=== PATIENT | female | born 1980 | race Two or more races ===

== ENCOUNTER 2017-06-22 15:08 | Outpatient (CLI) | payer BC ==
[~2017-06-22 15:08] MED LIST: ALPR0.25 PO; PANT40TA2 PO; SERT50TA12 PO
[2017-06-26 02:14] LABS: *NEISSERIA GONORRHOEAE NAA Negative (Negative); CHLAMYDIA TRACHOMATIS NAA Negative (Negative)
== END 2017-06-22 23:59 | disposition home or self-care (01) ==
LOC: LAB 15:08
PROVIDERS: ATTEND Family Medicine
DX: Z12.4 Encounter for screening for malignant neoplasm of cervix (principal); Z11.3 Encounter for screening for infections with a predominantly sexual mode of transmission
CPT/HCPCS: 87491; 87591; 88142

== ENCOUNTER 2018-06-24 07:25 | Outpatient (CLI) | payer BC ==
[2018-06-24 08:27] LABS: BASOPHILS % (AUTO) 0.4 % (0.0-2.0); EOSINOPHILS % (AUTO) 1.1 % (0.0-6.0); HEMATOCRIT 40 % (33-45); LYMPHOCYTES # (AUTO) 1.5 /CMM (0.8-4.8); LYMPHOCYTES % (AUTO) 35.1 % (20.0-44.0); MEAN CORPUSCULAR HEMOGLOBIN 29 PG (26.0-33.0); MEAN CORPUSCULAR HGB CONC 33 g/dl (31.0-36.0); MEAN CORPUSCULAR VOLUME 90 fL (82-100); MONOCYTES # (AUTO) 0.4 /CMM (0.1-1.30); MONOCYTES % (AUTO) 10.4 % (2.0-12.0); NEUTROPHILS # (AUTO) 2.2 /CMM (1.8-8.9); PLATELET COUNT (AUTO) 306 /CMM (150-450); RDW COEFFICIENT OF VARIATION 13.6 (11.5-15.0); RED BLOOD CELL COUNT(AUTO) 4.45 MIL/uL (4.0-5.2); WHITE BLOOD COUNT (AUTO) 4.2 K/uL (4.3-11.0)
[2018-06-24 08:31] LABS: ALBUMIN 3.7 g/dL (3.4-5.0); BILIRUBIN,TOTAL 0.5 mg/dL (0.2-1.0); CALCIUM, SERUM 8.1 mg/dL (8.5-10.1); CREATININE 0.7 mg/dL (0.6-1.3); POTASSIUM 3.9 mmol/L (3.5-5.1)
[2018-06-24 08:38] LABS: FREE T4 (FREE THYROXINE) 0.75 ng/dL (0.76-1.46); THYROID STIMULATING HORMONE 1.483 uIU/mL (0.358-3.74)
[2018-06-24 08:39] LABS: APPEARANCE,URINE CLEAR (CLEAR); BILIRUBIN,URINE NEGATIVE (NEGATIVE); BLOOD, URINE NEGATIVE Ery/uL (NEGATIVE); COLOR,URINE YELLOW (YELLOW); KETONES,URINE NEGATIVE (NEGATIVE); LEUKOCYTE ESTERASE ,URINE NEGATIVE (NEGATIVE); NITRITE, URINE NEGATIVE (NEGATIVE); PH,URINE 8.5 (5.0-8.0); PROTEIN,URINE NEGATIVE (NEGATIVE); UGLUCOSE NEGATIVE (NEGATIVE); UROBILINOGEN,URINE 0.2 EU/dL (0.2)
== END 2018-06-24 23:59 | disposition home or self-care (01) ==
LOC: LAB 07:25
PROVIDERS: ATTEND Family Medicine
DX: Z00.01 Encounter for general adult medical examination with abnormal findings (principal); N39.0 Urinary tract infection, site not specified
CPT/HCPCS: 36415; 80053-TC; 80061-TC; 81000-TC; 82306; 84439-TC; 84443-TC; 85025-TC

== ENCOUNTER 2019-03-23 07:22 | Emergency (ER) | payer BC ==
[~2019-03-23] VITALS: Ht 167.6 cm; Wt 78.5 kg
--- NOTE | 2019-03-23 07:46 | NUR ---
PATIENT C/O COUGH WITH CONGESTION x 3 DAYS, -FEVER, PATIENT A/OX4, NO DISTRESS NOTED, BREATHING EVEN AND UNLABORED, PLACED ON THE MONITOR.
[2019-03-23] MEDS ORDERED: predniSONE 20 MG TABLET ONE (07:58)
[2019-03-23] MEDS ORDERED: IPRATROPIUM NEB FS 0.5 MG/2.5 ML AMPUL.NEB ONE (08:00)
[2019-03-23] MEDS ORDERED: ALBUTEROL FS 2.5 MG/3 ML VIAL.NEB ONE (08:00)
[2019-03-23] MEDS ORDERED: IPRATROPIUM NEB FS 0.5 MG/2.5 ML AMPUL.NEB NEB ONE (08:00)
[2019-03-23] MEDS ORDERED: predniSONE 20 MG TABLET PO ONE (08:00)
[2019-03-23] MEDS ORDERED: ALBUTEROL FS 2.5 MG/3 ML VIAL.NEB NEB ONE (08:00)
--- NOTE | 2019-03-23 09:37 | NUR ---
Rx provided, Patient discharged to home in stable condition. Written and verbal after care instructions given. Patient verbalizes understanding of instruction.
[2019-03-23 09:39] VITALS: BP 129/69
== END 2019-03-23 09:40 | disposition home or self-care (01) ==
LOC: ER 07:24
DX: J06.9 Acute upper respiratory infection, unspecified (principal); J45.909 Unspecified asthma, uncomplicated
CPT/HCPCS: 71045; 94640; 99283; J7512

== ENCOUNTER 2020-08-25 08:54 | Outpatient (CLI) | payer BC ==
[2020-08-25 10:33] LABS: BASOPHILS % (AUTO) 0.5 % (0.0-2.0); EOSINOPHILS % (AUTO) 0.7 % (0.0-6.0); HEMATOCRIT 40 % (33-45); HEMOGLOBIN 13.6 g/dL (11.5-14.8); LYMPHOCYTES # (AUTO) 1.4 /CMM (0.8-4.8); LYMPHOCYTES % (AUTO) 35.6 % (20.0-44.0); MEAN CORPUSCULAR HGB CONC 34 g/dl (31.0-36.0); MEAN CORPUSCULAR VOLUME 89 fL (82-100); MONOCYTES # (AUTO) 0.3 /CMM (0.1-1.30); MONOCYTES % (AUTO) 7.2 % (2.0-12.0); NEUTROPHILS # (AUTO) 2.2 /CMM (1.8-8.9); PLATELET COUNT (AUTO) 335 /CMM (150-450); RED BLOOD CELL COUNT(AUTO) 4.56 MIL/uL (4.0-5.2); WHITE BLOOD COUNT (AUTO) 3.9 K/uL (4.3-11.0)
[2020-08-25 10:54] LABS: ALBUMIN 3.8 g/dL (3.4-5.0); BILIRUBIN,TOTAL 0.5 mg/dL (0.2-1.0); CALCIUM, SERUM 8.9 mg/dL (8.5-10.1); CREATININE 0.7 mg/dL (0.6-1.3); POTASSIUM 3.7 mmol/L (3.5-5.1); TOTAL PROTEIN, SERUM 7.4 g/dL (6.4-8.2)
[2020-08-25 10:59] LABS: THYROID STIMULATING HORMONE 0.948 uIU/mL (0.358-3.74)
[2020-08-25 11:01] LABS: APPEARANCE,URINE CLOUDY (CLEAR); BILIRUBIN,URINE NEGATIVE (NEGATIVE); BLOOD, URINE NEGATIVE Ery/uL (NEGATIVE); COLOR,URINE YELLOW (YELLOW); KETONES,URINE NEGATIVE (NEGATIVE); LEUKOCYTE ESTERASE ,URINE NEGATIVE (NEGATIVE); NITRITE, URINE NEGATIVE (NEGATIVE); PH,URINE 8.5 (5.0-8.0); PROTEIN,URINE NEGATIVE (NEGATIVE); UGLUCOSE NEGATIVE (NEGATIVE); UROBILINOGEN,URINE 0.2 EU/dL (0.2)
== END 2020-08-25 23:59 | disposition home or self-care (01) ==
LOC: LAB 08:54
PROVIDERS: ATTEND Family Medicine
DX: Z00.01 Encounter for general adult medical examination with abnormal findings (principal); Z79.899 Other long term (current) drug therapy
CPT/HCPCS: 36415; 80053-TC; 80061-TC; 81000-TC; 82306; 84439-TC; 84443-TC; 85025-TC

== ENCOUNTER 2021-12-15 10:02 | Outpatient (CLI) | payer BC | END 2021-12-15 23:59 | disposition home or self-care (01) | LOC: MRI 10:02 | PROVIDERS: ATTEND Family Medicine | DX: M25.462 Effusion, left knee (principal); M94.262 Chondromalacia, left knee; M19.011 Primary osteoarthritis, right shoulder; M75.51 Bursitis of right shoulder; M47.812 Spondylosis without myelopathy or radiculopathy, cervical region; M50.221 Other cervical disc displacement at C4-C5 level; M48.02 Spinal stenosis, cervical region; M25.78 Osteophyte, vertebrae | CPT/HCPCS: 72141-TC; 73221-TC; 73721-TC ==

== ENCOUNTER 2022-10-19 14:15 | Outpatient (CLI) | payer BC ==
[2022-10-20] MEDS ORDERED: IV NS 0.9% 250 ML IV ONE (11:10)
[2022-10-20] MEDS ORDERED: IOHEXOL-300 100 ML VIAL IV ONE (11:10)
== END 2022-10-19 23:59 | disposition home or self-care (01) ==
LOC: LAB 14:15
PROVIDERS: ATTEND Family Medicine
DX: Z75.3 Unavailability and inaccessibility of health-care facilities (principal)
CPT/HCPCS: J7050; Q9967

== ENCOUNTER 2022-10-20 10:45 | Outpatient (CLI) | payer BC | END 2022-10-20 23:59 | disposition home or self-care (01) | LOC: CT 10:45 | PROVIDERS: ATTEND Family Medicine | DX: D25.9 Leiomyoma of uterus, unspecified (principal); R10.9 Unspecified abdominal pain | CPT/HCPCS: 74178; J7050; Q9967 ==

== ENCOUNTER 2024-01-18 11:13 | Outpatient (CLI) | payer BC | END 2024-01-18 23:59 | disposition home or self-care (01) | LOC: MRI 11:13 | PROVIDERS: ATTEND Family Medicine | DX: M17.12 Unilateral primary osteoarthritis, left knee (principal); M22.42 Chondromalacia patellae, left knee; M25.462 Effusion, left knee; M25.562 Pain in left knee | CPT/HCPCS: 73721-TC ==

== ENCOUNTER 2024-03-25 06:55 | Inpatient (IN) | payer BC ==
[~2024-03-25] VITALS: Ht 167.6 cm; Wt 87.5 kg
[2024-03-25] MEDS ORDERED: BUPIVACAINE 0.5 % PF 150 MG/30 ML VIAL ONE (07:50)
[2024-03-25 08:24] LABS: BASOPHILS % (AUTO) 0.5 % (0.0-2.0); EOSINOPHILS # (AUTO) 0.1 K/uL (0.0-0.7); EOSINOPHILS % (AUTO) 1.9 % (0.0-6.0); HEMATOCRIT 39 % (33-45); HEMOGLOBIN 13.2 g/dL (11.5-14.8); LYMPHOCYTES # (AUTO) 1.4 K/uL (0.8-4.8); MEAN CORPUSCULAR HEMOGLOBIN 30 PG (26.0-33.0); MEAN CORPUSCULAR HGB CONC 34 g/dl (31.0-36.0); MEAN CORPUSCULAR VOLUME 87 fL (82-100); MONOCYTES # (AUTO) 0.3 K/uL (0.1-1.30); MONOCYTES % (AUTO) 8.9 % (2.0-12.0); NEUTROPHILS # (AUTO) 1.8 K/uL (1.8-8.9); NEUTROPHILS % (AUTO) 49.7 % (43.0-81.0); PLATELET COUNT (AUTO) 334 K/uL (150-450); RED BLOOD CELL COUNT(AUTO) 4.46 MIL/uL (4.0-5.2); RED CELL DISTRIBUTION WIDTH 13.7 % (11.5-15.0); WHITE BLOOD COUNT (AUTO) 3.7 K/uL (4.3-11.0)
[2024-03-25 08:26] LABS: PREGNANCY TEST URINE QUAL NEGATIVE (NEGATIVE)
[2024-03-25] MEDS ORDERED: MIDAZOLAM HCL 2 MG/2ML VIAL ONE (09:23)
[2024-03-25] MEDS ORDERED: FENTANYL PF 100MCG/2ML AMPUL ONE ×2 (09:23→11:26)
[2024-03-25] MEDS ORDERED: HYDROMORPHONE 1 MG/1 ML DISP.SYRIN ONE (12:05)
[2024-03-25 13:00] VITALS: BP 109/61; TEMP 98.4; O2SAT 99
[2024-03-25] MEDS ORDERED: HYDROCODONE/APAP 5/325MG TABLET PO PRN (13:00)
[2024-03-25] MEDS ORDERED: TERB250T52 PO (13:41)
[2024-03-25] MEDS: IV LR 1000 ML 1,000 ML IV PRN (13:56)
[2024-03-25] MEDS: HYDROMORPHONE INJ 2 MG/ML DISP.SYRIN IV PRN (14:20)
[2024-03-25] MEDS: ONDANSETRON HCL/PF 4 MG/2 ML VIAL IV PRN (14:20)
[2024-03-25 16:00] VITALS: BP 102/62; TEMP 99.5; O2SAT 97
[2024-03-25 20:00] VITALS: BP 113/58; TEMP 97.5; O2SAT 96
[2024-03-25 21:02] VITALS: BP 113/58; TEMP 97.5; O2SAT 96
[2024-03-25] MEDS: HYDROMORPHONE 1 MG/1 ML DISP.SYRIN IV PRN (21:55)
[2024-03-26 07:07] LABS: BASOPHILS % (AUTO) 0.1 % (0.0-2.0); HEMATOCRIT 31 % (33-45); HEMOGLOBIN 10.5 g/dL (11.5-14.8); LYMPHOCYTES # (AUTO) 1.1 K/uL (0.8-4.8); LYMPHOCYTES % (AUTO) 12.9 % (20.0-44.0); MEAN CORPUSCULAR HEMOGLOBIN 30 PG (26.0-33.0); MEAN CORPUSCULAR HGB CONC 35 g/dl (31.0-36.0); MEAN CORPUSCULAR VOLUME 87 fL (82-100); MONOCYTES # (AUTO) 0.9 K/uL (0.1-1.30); MONOCYTES % (AUTO) 10.1 % (2.0-12.0); NEUTROPHILS # (AUTO) 6.6 K/uL (1.8-8.9); NEUTROPHILS % (AUTO) 76.9 % (43.0-81.0); PLATELET COUNT (AUTO) 289 K/uL (150-450); RED BLOOD CELL COUNT(AUTO) 3.51 MIL/uL (4.0-5.2); RED CELL DISTRIBUTION WIDTH 13.7 % (11.5-15.0); WHITE BLOOD COUNT (AUTO) 8.6 K/uL (4.3-11.0)
[2024-03-26 07:30] VITALS: BP 114/54; TEMP 98.4; O2SAT 94
[2024-03-26 16:49] VITALS: BP 111/65; TEMP 97.9; O2SAT 97
[2024-03-26] MEDS: HYDROCODONE/APAP 5/325MG TABLET PO PRN (17:42)
[2024-03-26 22:40] VITALS: BP 118/56; TEMP 98.6; O2SAT 97
[2024-03-27 07:30] VITALS: BP 118/57; TEMP 98.8; O2SAT 98
[2024-03-27 16:28] VITALS: BP 120/62; TEMP 99; O2SAT 100
[2024-03-27 18:24] LABS: BASOPHILS % (AUTO) 0.3 % (0.0-2.0); EOSINOPHILS % (AUTO) 0.5 % (0.0-6.0); HEMATOCRIT 32 % (33-45); HEMOGLOBIN 10.8 g/dL (11.5-14.8); LYMPHOCYTES # (AUTO) 1.7 K/uL (0.8-4.8); LYMPHOCYTES % (AUTO) 22.2 % (20.0-44.0); MEAN CORPUSCULAR HEMOGLOBIN 30 PG (26.0-33.0); MEAN CORPUSCULAR HGB CONC 34 g/dl (31.0-36.0); MEAN CORPUSCULAR VOLUME 88 fL (82-100); MONOCYTES # (AUTO) 0.8 K/uL (0.1-1.30); MONOCYTES % (AUTO) 10.3 % (2.0-12.0); NEUTROPHILS % (AUTO) 66.7 % (43.0-81.0); PLATELET COUNT (AUTO) 291 K/uL (150-450); RED BLOOD CELL COUNT(AUTO) 3.61 MIL/uL (4.0-5.2); RED CELL DISTRIBUTION WIDTH 13.5 % (11.5-15.0); WHITE BLOOD COUNT (AUTO) 7.5 K/uL (4.3-11.0)
[2024-03-27 18:30] LABS: CALCIUM, SERUM 8.5 mg/dL (8.5-10.1); CREATININE 0.7 mg/dL (0.6-1.3); POTASSIUM 3.6 mmol/L (3.5-5.1)
== END 2024-03-27 21:24 | disposition home or self-care (01) | DRG 743 ==
LOC: DS 06:55 → MED 12:00
PROVIDERS: ADMIT Nurse Practitioner Acute Care; ATTEND Nurse Practitioner Acute Care
PROC: 0UT90ZZ Resection of Uterus, Open Approach (ICD-10-PCS; principal; 2024-03-25)
PROC: 0UT70ZZ Resection of Bilateral Fallopian Tubes, Open Approach (ICD-10-PCS; 2024-03-25)
PROC: 0UT20ZZ Resection of Bilateral Ovaries, Open Approach (ICD-10-PCS; 2024-03-25)
DX: D25.9 Leiomyoma of uterus, unspecified (principal); Z98.51 Tubal ligation status
CPT/HCPCS: 36415; 80048-TC; 84703-TC; 85025-TC; 86850-TC; 97110-TC; 97116-TC; 97530-TC; A4223; A6209; G0378; J0690; J1100; J1170; J1885; J2250; J2405; J2704; J3010; J3490; J7120

== ENCOUNTER 2025-10-03 15:23 | Emergency (ER) | payer BC ==
[~2025-10-03] VITALS: Ht 167.6 cm; Wt 79.4 kg
[~2025-10-03 15:23] MED LIST changes: -ALPR0.25 PO; -PANT40TA2 PO; +TERB250T52 PO
[2025-10-03 15:28] VITALS: BP 110/70; TEMP 98.5
[2025-10-03] MEDS ORDERED: AMOX-430 PO (15:38)
[2025-10-03 15:42] VITALS: O2SAT 98
== END 2025-10-03 15:48 | disposition home or self-care (01) ==
LOC: ER 15:26
DX: H66.91 Otitis media, unspecified, right ear (principal); F41.9 Anxiety disorder, unspecified